=== PATIENT | female | born 1990 | race Caucasian/White ===

== ENCOUNTER → 2023-07-08 | Outpatient (CLI) | payer BC ==
--- NOTE | 2023-07-08 12:40 | Diagnostic Imaging Report ---
PROCEDURE: US Gallbladder. TECHNIQUE: Multiple real-time grayscale images were obtained over the right upper quadrant in various projections. INDICATION: Right upper quadrant pain. FINDINGS: Liver parenchyma appeared normal. The portal vein is patent and normal in directional flow. The hepatic vein is patent. No biliary dilatation. The gallbladder was normal. The visible portions of the pancreas are normal. The aorta and IVC are normal in caliber, where visible. The right kidney is 9.7 cm and normal. IMPRESSION: Normal right upper quadrant ultrasound. Dictated by: Dictated on workstation # [id number]
== END ==
LOC: RAD 11:42
PROVIDERS: ATTEND Surgery
DX: R10.11 Right upper quadrant pain (principal); R11.2 Nausea with vomiting, unspecified
CPT/HCPCS: 76705

== ENCOUNTER → 2023-07-09 | Outpatient (CLI) | payer BC ==
[~2023-07-09] MED LIST: CATHETER FLUSH 10 ML SYR IVP PRN
--- NOTE | 2023-07-09 13:12 | Diagnostic Imaging Report ---
REASON FOR EXAM: Right upper quadrant pain. COMPARISON: 07/08/2023. PROCEDURE: The patient was administered 5.33 millicuries of technetium 99m mebrofenin and 8 ounces of Ensure 45 minutes into the exam. A nuclear medicine hepatobiliary scan with ejection fraction was performed. FINDINGS: There is prompt uptake and excretion of radiotracer by the liver. Activity is visible in the gallbladder by 15 minutes and the small bowel by 50 minutes. Ejection fraction of the gallbladder is calculated at 77% (normal >35%). The gallbladder visibly empties on the scans following the 8 ounces of Ensure. IMPRESSION: Normal hepatobiliary scan with normal gallbladder ejection fraction. Dictated by: Dictated on workstation # [id number]
== END ==
LOC: CARD 08:26
PROVIDERS: ATTEND Surgery
DX: R10.11 Right upper quadrant pain (principal)
CPT/HCPCS: 78227; A9537